=== PATIENT | male | born 1970 | race Caucasian/White ===

== ENCOUNTER → 2020-02-16 | Outpatient (CLI) | payer BC | END | disposition home or self-care (01) | LOC: LABWHC1 11:26 | PROVIDERS: ATTEND Family Medicine | DX: Z03.818 Encounter for observation for suspected exposure to other biological agents ruled out (principal) | CPT/HCPCS: U0003; C9803 ==

== ENCOUNTER 2021-06-24 21:48 | Emergency (ER) | payer BC ==
[2021-06-24 21:59] VITALS: RESP 18; TEMP 102.8
[2021-06-24 22:24] LABS: Basophils % (A) 0 %; Eosinophils % (A) 1 %; HCT 46.5 % (39.0-53.0); Lymphocytes # (A) 0.5 k/uL (1.0-4.8); Lymphocytes % (A) 6 %; MCHC 34.4 g/dL (31.0-37.0); MCV 92.9 fL (80.0-100.0); Mean Platelet Volume 7.6; Monocytes # (A) 0.2 k/uL (0-1.0); Monocytes % (A) 3 %; Neutrophils # (A) 6.9 k/uL (1.3-7.7); Neutrophils % (A) 90 %; Platelet Count 186 k/uL (150-450); RDW 13.2 % (11.5-15.5); WBC 7.7 k/uL (3.8-10.6)
[2021-06-24 22:33] LABS: Partial Thromboplastin Time 24.3 sec (22.0-30.0); Prothrombin Time 10.9 sec (9.0-12.0)
[2021-06-24 22:48] LABS: Albumin 4.4 g/dL (3.5-5.0); Magnesium 1.7 mg/dL (1.6-2.3); Total Bilirubin 1.5 mg/dL (0.2-1.3); Total Protein 7.1 g/dL (6.3-8.2)
[2021-06-25] MEDS ORDERED: ASPIRIN 81 MG PO STA (00:29)
[2021-06-25] MEDS ORDERED: SODIUM CHLORIDE 0.9% 1,000 ML IV ONE (00:30)
--- NOTE | 2021-06-25 00:36 | ED ---
Chest Pain HPI - General Chief Complaint: Chest Pain Stated Complaint: Chest Pain, Pain and numbness in left arm Time Seen by Provider: 06/25/21 00:20 Source: patient, RN notes reviewed Mode of arrival: wheelchair - History of Present Illness Initial Comments: This is a pleasant 50-year-old male who presents to emergency back complaining of chest pain. He states it felt like indigestion starting late afternoon, likely around 6 PM. Patient states it lasted for several hours and neck she started radiating to the left arm. This was unrelated to exertion. There was no shortness of breath. Patient is also had generalized body aches. Patient was found to have a fever in triage. Patient has no significant cardiac history. Patient states he recently had a cardiac stress test. 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 He was sent for a venous Doppler earlier today by his primary care physician. Patient states he had this done and was told it was clear for DVT. No headache, no fever or chills, no changes in vision or hearing, no sore throat or difficulty with speech, no neck pain, no shortness of breath, no abdominal pain, no nausea or vomiting, no changes in urination or bowel movements, no numbness or tingling, , no skin rashes or lesions. MD Complaint: chest pain - Related Data Allergies Allergy/AdvReac Type Severity Reaction Status Date / Time No Known Allergies Allergy Verified 06/24/21 21:59 Review of Systems ROS Statement: Those systems with pertinent positive or pertinent negative responses have been documented in the HPI. ROS Other: All systems not noted in ROS Statement are negative. EKG Findings - EKG Comments: EKG Findings:: EKG shows sinus tachycardia with a rate of 109. Poor R-wave progression. Q waves noted in lead 3. S wave 1. Inverted T-wave. In lead Past Medical History Past Medical History: Hyperlipidemia, Hypertension History of Any Multi-Drug Resistant Organisms: None Reported Past Surgical History: No Surgical Hx Reported Past Psychological History: No Psychological Hx Reported Smoking Status: Never smoker Past Alcohol Use History: Heavy Past Drug Use History: None Reported General Exam - General Exam Comments Initial Comments: Patient appears to be well. Not in any significant distress at this time. Cranial nerves II through XII grossly intact. Alert and oriented. General appearance: alert, in no apparent distress Head exam: Present: atraumatic, normocephalic, normal inspection Eye exam: Present: normal appearance, PERRL, EOMI. Absent: scleral icterus, conjunctival injection, periorbital swelling ENT exam: Present: normal exam, mucous membranes moist Neck exam: Present: normal inspection. Absent: tenderness, meningismus, lymphadenopathy Respiratory exam: Present: normal lung sounds bilaterally. Absent: respiratory distress, wheezes, rales, rhonchi, stridor Cardiovascular Exam: Present: normal rhythm, tachycardia, normal heart sounds. Absent: systolic murmur, diastolic murmur, rubs, gallop, clicks GI/Abdominal exam: Present: soft, normal bowel sounds. Absent: distended, tenderness, guarding, rebound, rigid Extremities exam: Present: normal inspection, full ROM, normal capillary refill, other (Negative Homans sign). Absent: tenderness, pedal edema, joint swelling, calf tenderness Back exam: Present: normal inspection Neurological exam: Present: alert, oriented X3, CN II-XII intact Psychiatric exam: Present: normal affect, normal mood Skin exam: Present: warm, dry, intact, normal color. Absent: rash Course Vital Signs 06/24/21 06/25/21 06/25/21 21:54 01:10 02:43 Temperature 102.8 F H Pulse Rate 111 H 95 92 Respiratory 18 18 18 Rate Blood Pressure 132/84 131/86 123/83 O2 Sat by Pulse 95 98 98 Oximetry - Reevaluation(s) Reevaluation #1: 06/25/21 01:34 Medical record is reviewed Symptoms are improved here in the emergency department Patient is informed of results and questions answered Patient in no distress Vital signs have stabilized. Patient has no acute findings on CTA of the chest. Patient does inform me that he has had previous EKG changes which we do not have results for. Patient states he was sent for a stress test for these changes. Stress test was negative. Reevaluation #2: 06/25/21 01:59 Medical record is reviewed Symptoms are improved here in the emergency department Patient is informed of results and questions answered Patient in no distress Patient currently asymptomatic. Patient has been given aspirin. Chest Pain MDM - Differential Diagnosis AMI, ACS, PE, Pneumonia, GERD, Chest Wall Syndrome - [facility] Patient presented to the emergency department with anterior chest pain which he described as indigestion. It been going on for handful of hours since around 6 PM. They did start radiating to his left arm. Patient was found to have a fever in triage. Patient's diagnostic testing is essentially negative. Patient did have nonspecific EKG changes on his initial EKG at 10:03 PM. Patient's chest pain and arm discomfort had resolved. Troponin was negative. This patient has had a negative stress test/stress echocardiogram 3 months ago. This is by his history. Patient states he has previously had EKG changes which were nonspecific as well. Patient's heart score is significant for moderate risk. Patient has had no recent cardiac catheter. I did advise admission for observation with the patient. Patient is lucid and able to drink is on medical decisions. I did convince the patient to have a second troponin done at 2 AM. This was ordered. Patient agrees to this. The case was discussed in detail with ED attending physician. Presentation, findings, treatment plan discussed in detail. Note that computed tomography scan shows no evidence of pulmonary embolism or other acute pathology. No other findings consistent with the patient's fever and myalgias. Viral syndrome is within the differential. Patient had no evidence of meningeal signs. Patient's second troponin was also negative at 3 AM. Disposition Clinical Impression: Chest pain, Fever Disposition: ADMITTED IP TO THIS HOSP Condition: Good Instructions (If sedation given, give patient instructions): Chest Pain (ED) Additional Instructions: I did advise that you stand hospital for observation. However, he did have 2 negative troponins.--Follow-up on Sunday as directed. Make sure you make an appointment with your primary care physician first thing Sunday. Return here to the ER if any symptoms recur and he symptoms worsen. Continue a daily aspirin, 325 mg per day. Follow-up with cardiology as directed as well. Is patient prescribed a controlled substance at d/c from ED?: No Referrals: Alyssia Betts MD [Primary Care Provider] - 1-2 days Omero Eldridge MD [STAFF PHYSICIAN] - 1-2 days Time of Disposition: 03:12
--- NOTE | 2021-06-25 01:20 | CT ---
EXAMINATION TYPE: CT angio chest DATE OF EXAM: 06/25/2021 COMPARISON: None HISTORY: chest pain. rule out PE CT DLP: 555.1 mGycm Automated exposure control for dose reduction was used. CONTRAST: Performed with IV Contrast, patient injected with 100ml mL of Isovue 370. Images obtained from the thoracic inlet to the diaphragm without IV contrast. There are Three-D postp rocessed images. The lungs are clear of infiltrate. No pleural effusion. No evidence of a pulmonary mass. There is no mediastinal adenopathy. There are no hilar masses. Thoracic aorta is intact. No aneurysm or dissectio n. There is normal contrast opacification of the pulmonary arteries. There are no filling defects. There is mild fatty infiltration of the liver. Heart size is normal. No pericardial effusion. Ascending aorta measures 3.2 cm. No aneurysm or dissection. The thoracic spine is intact. No compression fracture. Sternum is intact. IMPRESSION: No evidence of pulmonary embolism. No suspicious pulmonary mass. Minimal subsegmental atelectasis at the lung bases.
[2021-06-25 03:25] VITALS: BP 130/86; PULSE 78
== END 2021-06-25 03:25 | disposition other institution (70) ==
LOC: EC 21:48
DX: R07.89 Other chest pain (principal); R50.9 Fever, unspecified; E78.5 Hyperlipidemia, unspecified; I10 Essential (primary) hypertension
CPT/HCPCS: 99285; 96360; 36415 ×2; 93005; 80053; 83735; 84484 ×2; 85025; 85610; 85730; 87502; 87635; 71275; Q9967